=== PATIENT | female | born 1960 | race African-American/Black ===

== ENCOUNTER 2018-09-07 18:37 | Emergency (ER) | payer OTHER ==
[~2018-09-07] VITALS: Ht 167.6 cm; Wt 68.0 kg
[2018-09-07] MEDS ORDERED: MOBIC15 MG PO (19:44)
[2018-09-07 20:05] VITALS: BP 133/71
== END 2018-09-07 21:01 | disposition home or self-care (01) ==
LOC: ER 18:37
DX: S29.011A Strain of muscle and tendon of front wall of thorax, initial encounter (principal); S80.01XA Contusion of right knee, initial encounter; W01.0XXA Fall on same level from slipping, tripping and stumbling without subsequent striking against object, initial encounter; Y92.512 Supermarket, store or market as the place of occurrence of the external cause; Y93.89 Activity, other specified; Y99.8 Other external cause status